=== PATIENT | male | born 2000 | race Caucasian/White ===

== ENCOUNTER → 2024-06-05 06:07 | Day surgery (SDC) | payer OTHER, SELFPAY | LOC: GI 06:07 | PROVIDERS: ATTENDING PHYSICIAN Internal Medicine Gastroenterology | DX: K50.80 Crohn's disease of both small and large intestine without complications (principal); K52.9 Noninfective gastroenteritis and colitis, unspecified | CPT/HCPCS: 45380; 88305 ==

== ENCOUNTER → 2024-07-15 12:33 | Outpatient (REF) | payer OTHER, SELFPAY | LOC: MRI 3T 12:33 | PROVIDERS: ATTENDING PHYSICIAN Internal Medicine Gastroenterology; FAMILY PHYSICIAN Family Medicine | DX: K50.80 Crohn's disease of both small and large intestine without complications (principal) | CPT/HCPCS: 72197; 74183; A9585 ==

== ENCOUNTER → 2025-04-29 11:21 | Outpatient (REF) | payer OTHER, SELFPAY | LOC: RAD 11:21 | PROVIDERS: ATTENDING PHYSICIAN Internal Medicine Gastroenterology; FAMILY PHYSICIAN Family Medicine | DX: K59.09 Other constipation (principal) | CPT/HCPCS: 74018 ==

== ENCOUNTER 2025-06-01 06:26 | Day surgery (SDC) | payer OTHER, SELFPAY | END 2025-06-01 12:29 | disposition home or self-care (01) | LOC: GI 06:26 | PROVIDERS: ATTENDING PHYSICIAN Internal Medicine Gastroenterology | DX: K51.90 Ulcerative colitis, unspecified, without complications (principal); K63.89 Other specified diseases of intestine; K64.8 Other hemorrhoids | CPT/HCPCS: 45331; 88305 ==

== ENCOUNTER → 2025-06-08 07:05 | Outpatient (REF) | payer OTHER, SELFPAY | LOC: MRI 3T 07:05 | PROVIDERS: ATTENDING PHYSICIAN Internal Medicine Gastroenterology; FAMILY PHYSICIAN Family Medicine | DX: K50.811 Crohn's disease of both small and large intestine with rectal bleeding (principal) | CPT/HCPCS: 72197; 74183; A9585 ==